=== PATIENT | female | born 1970 | race Caucasian/White ===

== ENCOUNTER 2019-01-25 10:24 | Day surgery (SDC) | payer OTHER ==
[2019-01-24 17:08] VITALS: BMI 24.2
[2019-01-25] MEDS ORDERED: Midazolam HCl 2 mg/2 ml Vial ONE (11:03)
[2019-01-25] MEDS ORDERED: Dexamethasone 4 mg/ml Vial ONE (11:04)
[2019-01-25] MEDS ORDERED: Fentanyl 100 MCG/2 ML VIAL ONE ×2 (11:04→12:21)
[2019-01-25] MEDS ORDERED: Bupivacaine HCl 0.5%/Epinephrine 1:200,000/PF 30 ml Vial ONE (11:09)
[2019-01-25] MEDS ORDERED: Ropivacaine 0.5% HCl/PF (150 MG/30 ML VIAL) ONE (11:09)
[2019-01-25 11:31] LABS: #Eosinphils 0.1 thou/uL (0.0-0.7); #Lymphocytes 1.7 thou/uL (1.20-3.40); #Monocytes 0.4 thou/uL (0.11-0.59); #Neutrophils 3.8 thou/uL (1.40-6.50); %Basophils 0.6 % (0.0-1.0); %Eosinophils 1.3 % (0.0-10.0); %Lymphocytes 27.7 % (21.0-51.0); %Monocytes 6.6 % (0.0-10.0); %Neutrophils 63.8 % (42.0-75.0); Hemoglobin 12.5 g/dL (12.0-16.0); Mean Corpuscular Hemoglobin 31.3 pg (27.0-31.0); Mean Corpuscular Volume 94.6 fL (78.0-98.0); Mean Platelet Volume 6.6 fL (7.4-10.4); Platelet Count 252 thou/uL (130-400); RBC Distribution Width 11.5 % (11.5-14.5)
[2019-01-25 11:39] LABS: BHCG - Serum Negative (NEGATIVE); Pregs Control Background? CLEAR/WHITE (CLR/WHITE); Pregs Control Bar Appear? YES (CONTROL BAR)
[2019-01-25 11:49] LABS: Anion Gap 12 mmol/L (10-20); BUN (Urea Nitrogen) 7 mg/dL (7.0-18.7); Calc. Creatinine Clearance 93 mL/min (70-130); Calcium 8.4 mg/dL (7.8-10.44); Carbon Dioxide 24 mmol/L (22-29); Chloride 108 mmol/L (98-107); Estimated GFR-MDRD 82; Glucose 73 mg/dL (70-105); Potassium 4.1 mmol/L (3.5-5.1); Sodium 140 mmol/L (136-145)
[2019-01-25] MEDS ORDERED: Zolpidem Tartrate 5 MG TAB PO PRN (12:13)
[2019-01-25] MEDS ORDERED: Ondansetron PF 4 MG/2 ML Vial IVP PRN (12:13)
[2019-01-25] MEDS ORDERED: Ropivacaine 0.2% 550 ML 550 ML NERVE BLCK SCH (12:13)
[2019-01-25] MEDS ORDERED: HYDROcodone/Acetaminophen 10/325 mg Tablet PO PRN ×2 (12:13)
[2019-01-25] MEDS ORDERED: traMADol HCl 50 MG TAB PO PRN ×2 (12:13)
[2019-01-25] MEDS ORDERED: Promethazine HCl 25 MG/ML VIAL IM PRN (12:13)
[2019-01-25] MEDS ORDERED: Fentanyl 100 MCG/2 ML VIAL IV PRN (12:14)
[2019-01-25] MEDS ORDERED: Ondansetron PF 4 MG/2 ML Vial ONE (12:32)
[2019-01-25] MEDS ORDERED: ePHEDrine 50 MG/ML VIAL ONE (12:32)
[2019-01-25] MEDS ORDERED: PROPOFOL 200 MG/20 ML VIAL ONE (12:32)
[2019-01-25] MEDS ORDERED: Ketorolac Tromethamine 30 MG/ML VIAL ONE (12:32)
[2019-01-25] MEDS ORDERED: Dexamethasone 20 MG/5 ML VIAL ONE (12:32)
--- NOTE | 2019-01-25 13:32 | RAD ---
FExam: 3 views of the right ankle Findings/impression: 3 limited intraoperative fluoroscopic views of the right ankle shows the patient ongoing fixation of the distal fibula with a plate and screws and of the medial malleolus with 2 scr ews. Normal alignment of the ankle mortise is seen.
--- NOTE | 2019-01-25 18:37 | OP ---
DATE OF PROCEDURE: 01/25/2019 PREOPERATIVE DIAGNOSIS: Right ankle bimalleolar fracture. POSTOPERATIVE DIAGNOSIS: Right ankle bimalleolar fracture. PROCEDURE PERFORMED: Open reduction and internal fixation of right ankle bimalleolar fracture. SURGEON: Tanner Jarrett MD. GIS ANALYST DEVELOPER: Devon Copeland PA-C. ANESTHESIA: General via LMA augmented with a peripheral indwelling block. COMPONENTS USED: Synthes 1/3rd tubular 5-hole plate with a two medial malleolar cannulated 3.5 screws. TOURNIQUET TIME: 35 minutes at 300 mmHg. ESTIMATED BLOOD LOSS: Negligible. FINDINGS: Bimalleolar fracture as described on radiograph with a low Flores C fibular fracture and small medial malleolar component. DRAINS: None. SPECIMENS: None. COMPLICATIONS: None. COUNTS: Correct. INDICATION FOR SURGERY: Delfina is a 48-year-old white female, who was involved in a fall approximately five to seven days ago. She fell a few feet, landing on her right ankle and hip resulting in fracture. She has elected to proceed with open reduction and internal fixation as definitive treatment of this problem. PROCEDURE IN DETAIL: After informed consent was obtained in the preop holding area, the patient was taken to the operative suite, where she received preop antibiotics. General anesthesia was induced. LMA was placed. Once adequate anesthesia was obtained, the well-padded tourniquet was placed over the right proximal thigh and the right lower extremity was then prepped and draped in usual sterile fashion. Fluoroscopy was brought into the field and confirmation of the fracture pattern was identified. Prior to exsanguination, a time-out was called. All members of surgical team agreed upon site, surgeon, and patient. The extremity was then exsanguinated and tourniquet was raised. A lateral incision was made directly over the fibula, which was addressed first with Bovie electrocautery controlling the bleeding. Sharp dissection was carried down to the bone. Periosteal elevator was then used to elevate the periosteum off the fibula. The fracture was then exposed and identified. It was curetted and washed out thoroughly with bulb irrigation. Primary reduction was obtained, achieved with bone forceps and in-line longitudinal traction. A single front to back 24 mm fully-threaded cortical screw was then placed anterior-posterior achieving good AO squeeze and fixation. A 5-hole 1/3 tubular plate was then contoured by hand and placed and firmly fixed into place. Adequate fixation. We reviewed this in two views. Then turned our attention to the medial malleolar. A longitudinal incision was made directly over medial malleolus and this was exposed. Fracture pattern was identified, curetted and irrigated out. In-line longitudinal traction with a preliminary reduction forceps was achieved. Two two K-wires were placed transversely across the axis of the fracture, which was identified, squeezed, and we applied two partially-threaded cancellous 3.5 screws. Fluoroscopy was then used to confirm fixation happy with near anatomic reduction, that incision was irrigated copiously. Primary closure was accomplished with 3-0 Vicryl. Subcutaneous layer was closed with 2-0 Vicryl and stainless steel kesha were used to reapproximate skin on both sides. Sterile dressing was applied, and this patient was placed in a posterior short-leg splint. We also used Doppler ultrasound confirming dorsalis pedis pulse. She was turned down by the complications. The patient was taken to recovery room in stable condition. LMA was removed. Job ID: [id number]
== END 2019-01-25 16:15 | disposition home or self-care (01) ==
LOC: SDC 10:24
PROVIDERS: ATTEND Orthopaedic Surgery
PROC: 0QSG04Z Reposition Right Tibia with Internal Fixation Device, Open Approach (ICD-10-PCS; principal; 2019-01-25)
PROC: 0QSJ04Z Reposition Right Fibula with Internal Fixation Device, Open Approach (ICD-10-PCS; principal; 2019-01-25)
DX: S82.841A Displaced bimalleolar fracture of right lower leg, initial encounter for closed fracture (principal); S93.04XA Dislocation of right ankle joint, initial encounter; E03.9 Hypothyroidism, unspecified; F32.9 Major depressive disorder, single episode, unspecified; Z79.899 Other long term (current) drug therapy; W17.89XA Other fall from one level to another, initial encounter
CPT/HCPCS: 36415; 76000; 80048; 84703; 85025; A4306; C1713; C1769; J0670; J1100; J1885; J2250; J2405; J2704; J2795; J3010; J3490

== ENCOUNTER 2019-08-29 18:07 | Emergency (ER) | payer OTHER ==
[2019-08-29 18:54] LABS: Bilirubin Negative (Negative); Blood, Urine Moderate (Negative); Clarity Cloudy (Clear); Glucose, Urine (Dipstick) Negative (Negative); Leukocyte Small (Negative); Nitrite Negative (Negative); Protein, Urine (Dipstick) Negative (Neg-Trace); Urobilinogen 0.2 mg/dL (Less than 2)
[2019-08-29 18:55] LABS: #Lymphocytes 0.6 thou/uL (1.20-3.40); #Monocytes 0.1 thou/uL (0.11-0.59); %Basophils 0.4 % (0.0-1.0); %Eosinophils 0.5 % (0.0-10.0); %Lymphocytes 6.5 % (21.0-51.0); %Monocytes 1.1 % (0.0-10.0); %Neutrophils 91.5 % (42.0-75.0); Hemoglobin 12.9 g/dL (12.0-16.0); Mean Corpuscular HGB CONC 34.1 g/dL (32.0-36.0); Mean Corpuscular Hemoglobin 30.9 pg (27.0-31.0); Mean Corpuscular Volume 90.8 fL (78.0-98.0); Mean Platelet Volume 5.9 fL (7.4-10.4); Platelet Count 244 thou/uL (130-400); RBC Distribution Width 11.7 % (11.5-14.5); Red Blood Cell (RBC) Count 4.18 mill/uL (4.20-5.40); White Blood Cell (WBC) Count 8.8 thou/uL (4.8-10.8)
[2019-08-29 18:58] LABS: Bacteria/HPF 3+ HPF (None Seen)
--- NOTE | 2019-08-29 18:59 | RAD ---
Chest AP view INDICATION: Back pain and body aches COMPARISON: None FINDINGS: Lungs:The lungs are clear Cardiac silhouette:The cardiomediastinal silhouette appears within normal limits. Pulmonary vasculature:Normal Pleural spaces:No pleural effusion or pneumothorax is demonstrated. Upper abdomen:No abnormality seen. Osseous structures: There is postsurgical change of a right shoulder rotator cuff repair. No acute os seous abnormality is demonstrated. Additional findings:None. IMPRESSION: No acute cardiopulmonary abnormality.
[2019-08-29 19:09] LABS: ALT (SGPT) 10 U/L (8-55); AST (SGOT) 14 U/L (5-34); Albumin 4.1 g/dL (3.5-5.0); Alkaline Phosphatase 47 U/L (40-110); Anion Gap 11 mmol/L (10-20); BUN (Urea Nitrogen) 11 mg/dL (7.0-18.7); Bilirubin, Total 0.5 mg/dL (0.2-1.2); CK (CPK) 96 U/L (29-168); Calc. Creatinine Clearance 0 mL/min (70-130); Carbon Dioxide 23 mmol/L (22-29); Chloride 110 mmol/L (98-107); Estimated GFR-MDRD 72; Globulin 2.6 g/dL (2.4-3.5); Glucose 105 mg/dL (70-105); Lipase 22 U/L (8-78); Potassium 3.4 mmol/L (3.5-5.1); Protein, Total 6.7 g/dL (6.0-8.3); Sodium 141 mmol/L (136-145)
== END 2019-08-29 19:36 | disposition home or self-care (01) ==
LOC: SCSER 18:07
DX: N39.0 Urinary tract infection, site not specified (principal); E03.9 Hypothyroidism, unspecified
CPT/HCPCS: 36415; 71045; 80053; 81003; 81015; 82550; 83690; 84484; 85025; 93005

== ENCOUNTER 2020-05-18 14:56 | Outpatient (CLI) | payer OTHER ==
--- NOTE | 2020-05-18 15:41 | MMO ---
Right Breast MAMMO Unilat Diag DDI RT+ALAN. CLINICAL HISTORY: Patient is 49 years old and is seen for diagnostic exam. VIEWS: The views performed were: right craniocaudal with tomosynthesis; right mediolateral oblique with tomosynthesis; and right mediolateral with tomosynthesis. FILMS COMPARED: The present examination has been compared to prior imaging studies performed at [facility] on 05/08/2020, at [facility] on 05/18/2020, and at [facility] on 07/09/2010. This study has been interpreted with the assistance of computer-aided detection. MAMMOGRAM FINDINGS: The breast is heterogeneously dense, which could obscure a lesion on mammography. There is an oval mass measuring 10 millimeters with obscured margins seen in the right breast at 10 o'clock. The mass was shown to be a cyst on ultrasound. There are no suspicious masses, suspicious calcifications, or new areas of architectural distortion. IMPRESSION: THERE IS NO MAMMOGRAPHIC EVIDENCE OF MALIGNANCY. A ROUTINE FOLLOW-UP MAMMOGRAM IN 1 YEAR IS RECOMMENDED. THE RESULTS OF THIS EXAM WERE SENT TO THE PATIENT. ACR BI-RADS Category 2 - Benign finding MAMMOGRAPHY NOTE: 1. A negative mammogram report should not delay a biopsy if a dominant of clinically suspicious mass is present. 2. Approximately 10% to 15% of breast cancers are not detected by mammography. 3. Adenosis and dense breasts may obscure an underlying neoplasm. Reported by: MIKAEL COHEN MD Electonically Signed: [id number]
--- NOTE | 2020-05-18 15:44 | ULT ---
EXAM: US Breast Limited Rt PROVIDED CLINICAL HISTORY: Abnormal mammogram COMPARISON: None FINDINGS: Limited sonographic interrogation of the right breast was performed in the region of mammographic con cern. Multiple simple cysts are seen, with adjacent cysts at the 10:00 position of the right breast measuring about 9 mm in aggregate corresponding with the mammogram finding. No concerning findings ar e evident. IMPRESSION: Simple cysts are seen in the region of mammographic concern. No concerning findings are evident. Retu rn to annual screening mammography recommended. BI-RADS 2 -- benign findings
== END 2020-05-18 14:57 | disposition home or self-care (01) ==
LOC: BICMAMMO 14:56
PROVIDERS: ATTEND Obstetrics & Gynecology
DX: R92.2 Inconclusive mammogram (principal); N60.09 Solitary cyst of unspecified breast
CPT/HCPCS: G0279

== ENCOUNTER 2021-09-04 08:27 | Outpatient (CLI) | payer OTHER | END 2021-09-04 08:28 | disposition home or self-care (01) | LOC: BICMAMMO 08:27 | PROVIDERS: ATTEND Family Medicine | DX: Z12.31 Encounter for screening mammogram for malignant neoplasm of breast (principal) | CPT/HCPCS: 77063; 77067 ==

== ENCOUNTER 2022-08-13 14:03 | Emergency (ER) | payer OTHER ==
[2022-08-13] MEDS ORDERED: HYDROmorphone 0.5 MG/0.5 ML SYRINGE ONE ×2 (14:13→14:53)
[2022-08-13] MEDS ORDERED: Ondansetron PF 4 MG/2 ML Vial ONE (14:13)
[2022-08-13] MEDS ORDERED: Iopamidol 370 76% 50 ML VIAL FS ONE (14:33)
[2022-08-13 14:35] LABS: #Basophils 0.1 thou/uL (0.0-0.2); #Monocytes 0.7 thou/uL (0.11-0.59); #Neutrophils 11.3 thou/uL (1.40-6.50); %Basophils 0.4 % (0.0-1.0); %Eosinophils 0.3 % (0.0-10.0); %Lymphocytes 14.3 % (21.0-51.0); %Monocytes 4.7 % (0.0-10.0); %Neutrophils 80.4 % (42.0-75.0); Hemoglobin 14.1 g/dL (12.0-16.0); Mean Corpuscular HGB CONC 32.8 g/dL (32.0-36.0); Mean Corpuscular Hemoglobin 32.5 pg (27.0-31.0); Mean Corpuscular Volume 99.2 fL (78.0-98.0); Mean Platelet Volume 6.4 fL (7.4-10.4); Platelet Count 365 thou/uL (130-400); RBC Distribution Width 11.6 % (11.5-14.5); Red Blood Cell (RBC) Count 4.35 mill/uL (4.20-5.40)
[2022-08-13 14:49] LABS: ALT (SGPT) 17 U/L (8-55); AST (SGOT) 17 U/L (5-34); Albumin 4.5 g/dL (3.5-5.0); Alkaline Phosphatase 39 U/L (40-110); Anion Gap 12 mmol/L (10-20); BUN (Urea Nitrogen) 11 mg/dL (9.8-20.1); Bilirubin, Total 0.7 mg/dL (0.2-1.2); Calc. Creatinine Clearance 0 mL/min (70-130); Calcium 9.3 mg/dL (7.8-10.44); Carbon Dioxide 25 mmol/L (22-29); Chloride 105 mmol/L (98-107); Estimated GFR 69; Globulin 2.6 g/dL (2.4-3.5); Glucose 106 mg/dL (70-105); Potassium 3.6 mmol/L (3.5-5.1); Protein, Total 7.1 g/dL (6.0-8.3); Sodium 138 mmol/L (136-145)
== END 2022-08-13 16:19 | disposition home or self-care (01) ==
LOC: ERS 14:03
DX: S27.0XXA Traumatic pneumothorax, initial encounter (principal); S22.42XA Multiple fractures of ribs, left side, initial encounter for closed fracture; E03.9 Hypothyroidism, unspecified; D64.9 Anemia, unspecified; V80.010A Animal-rider injured by fall from or being thrown from horse in noncollision accident, initial encounter
CPT/HCPCS: 70450; 71045; 71260; 74177; 80053; 85025; 86850; 86900; 86901; 96374; 96375; 96376; J1170; J2405; Q9967

== ENCOUNTER 2022-08-20 09:55 | Outpatient (CLI) | payer OTHER | END 2022-08-20 09:56 | disposition home or self-care (01) | LOC: BICRAD 09:55 | PROVIDERS: ATTEND Surgery | DX: S22.43XA Multiple fractures of ribs, bilateral, initial encounter for closed fracture (principal) | CPT/HCPCS: 71046 ==